=== PATIENT | female | born 1980 | race African-American/Black ===

== ENCOUNTER 2020-01-17 15:23 | Inpatient (IN) | payer SELFPAY ==
[~2020-01-17] VITALS: Ht 167.6 cm; Wt 57.9 kg
[2020-01-17] MEDS ORDERED: cefTRIAXone 1GM/50ML D5W 50 ML IV ONE (16:15)
[2020-01-17] MEDS ORDERED: SODIUM CHLORIDE 0.9% 1,000 ML IV ONE ×2 (16:15→17:00)
[2020-01-17 16:28] LABS: Basophils # (auto) 0.2 10 ^3/uL (0-0.2); Eosinophils # (auto) 0.6 10 ^3/uL (0-0.8); Neutrophils # (auto) 5.5 10 ^3/uL (1.6-8.6); Nucleated Red Blood Cells % 0.5 %
[2020-01-17 16:30] LABS: Basophils % (auto) 1.7 % (0.0-2.0); Eosinophils % (auto) 5.8 % (0.0-7.0); Lymphocytes # (auto) 2.4 10 ^3/uL (0.4-5.4); Lymphocytes % (auto) 23.9 % (10.0-50.0); Mean Corpuscular Hemoglobin 38.5 pg (28.0-32.0); Mean Corpuscular Hgb Conc. 35.4 g/dL (32.0-36.0); Mean Corpuscular Volume 108.6 fL (80.0-100.0); Monocytes # (auto) 1.3 10 ^3/uL (0-1.3); Monocytes % (auto) 13.2 % (0.0-12.0); Neutrophils % (auto) 55.4 % (37.0-80.0); Platelet Count (auto) 482 10^3/uL (140-450); Red Blood Cells 1.29 10^6/uL (4.0-5.20); Red Cell Distribution Width 17.9 % (11.8-14.3)
[2020-01-17 16:46] LABS: Albumin 4.2 g/dL (3.4-5.0); Potassium 4.1 mmol/L (3.5-5.1)
[2020-01-17 16:52] LABS: Bilirubin, Total 6.5 mg/dL (0.2-1.0); Calcium 8.7 mg/dL (8.5-10.1); Total Protein 8.7 g/dL (6.4-8.2)
[2020-01-17 17:35] LABS: INR 1.08 (0.9-1.15); Partial Thromboplastin Time 27.7 sec (23.0-31.2)
[2020-01-17] MEDS ORDERED: NEOMYCIN-BACITRACIN-POLYM UNITDOSE PKG TOP OINT TOP ONE ×2 (17:52→18:15)
[2020-01-17] MEDS ORDERED: LORazepam 0.5 MG TAB PO PRN (18:15)
[2020-01-17] MEDS ORDERED: NITROGLYCERIN 0.4 MG SL TAB SL PRN (18:15)
[2020-01-17] MEDS ORDERED: MORPHINE SULF INJ 2 MG/ML SYRINGE 1ML IV PRN ×2 (18:15)
[2020-01-17] MEDS ORDERED: ACETAMINOPHEN 500 MG TAB PO PRN (18:15)
[2020-01-17] MEDS: SODIUM CHLORIDE 0.9% 1,000 ML IV SCH (18:38)
[2020-01-17 20:59] VITALS: BP 135/65
[2020-01-17 21:03] LABS: Urine Bacteria FEW /hpf (None Seen); Urine Blood TRACE /uL (Negative); Urine Specific Gravity 1.008 (1.001-1.035); Urine WBC 1 /hpf (0 - 5)
[2020-01-17 21:31] VITALS: BP 136/84
[2020-01-17] MEDS: NEOMYCIN-BACITRACIN-POLYM 15GM TOP OINT TOP SCH (22:00)
[2020-01-18] VITALS (10 sets, daily range): BP systolic 121–149; BP diastolic 53–87
[2020-01-18] MEDS: SODIUM CHLORIDE 0.9% 1,000 ML IV SCH ×2 (04:34→14:43)
[2020-01-18 07:00] LABS: Eosinophils # (auto) 0.7 10 ^3/uL (0-0.8); Hematocrit 12.1 % (36.0-46.0); Nucleated Red Blood Cells % 0.6 %; White Blood Cell 9.8 10^3/uL (4.4-10.8)
[2020-01-18 07:05] LABS: Basophils # (auto) 0.1 10 ^3/uL (0-0.2); Basophils % (auto) 1.3 % (0.0-2.0); Eosinophils % (auto) 7.2 % (0.0-7.0); Lymphocytes # (auto) 2.7 10 ^3/uL (0.4-5.4); Lymphocytes % (auto) 27.3 % (10.0-50.0); Mean Corpuscular Hemoglobin 39.9 pg (28.0-32.0); Mean Corpuscular Hgb Conc. 36.5 g/dL (32.0-36.0); Mean Corpuscular Volume 109.4 fL (80.0-100.0); Monocytes # (auto) 1.3 10 ^3/uL (0-1.3); Monocytes % (auto) 13.1 % (0.0-12.0); Neutrophils % (auto) 51.1 % (37.0-80.0); Platelet Count (auto) 402 10^3/uL (140-450); Red Cell Distribution Width 17.1 % (11.8-14.3)
[2020-01-18 07:18] LABS: Hemoglobin 4.4 g/dL (12.2-16.2)
[2020-01-18 07:20] LABS: Albumin 3.2 g/dL (3.4-5.0); Calcium 7.9 mg/dL (8.5-10.1); Potassium 4.4 mmol/L (3.5-5.1)
[2020-01-18 07:23] LABS: Bilirubin, Total 4.2 mg/dL (0.2-1.0); Total Protein 7.4 g/dL (6.4-8.2)
[2020-01-18] MEDS: PANTOPRAZOLE 40 MG TAB PO SCH (10:00)
[2020-01-18] MEDS: FOLIC ACID 1 MG TAB PO SCH (10:00)
[2020-01-18] MEDS: NEOMYCIN-BACITRACIN-POLYM 15GM TOP OINT TOP SCH ×2 (10:00→22:00)
[2020-01-18] MEDS: DOCUSATE CALCIUM 240 MG CAP PO SCH (10:00)
[2020-01-18] MEDS ORDERED: cefTRIAXone 1GM/50ML D5W 50 ML IV ONE (12:30)
[2020-01-18] MEDS: CLINDAMYCIN 600MG IV 50 ML IV SCH ×2 (14:44→22:00)
[2020-01-19] VITALS (10 sets, daily range): BP systolic 125–139; BP diastolic 49–75
[2020-01-19] MEDS: SODIUM CHLORIDE 0.9% 1,000 ML IV SCH ×3 (00:15→23:30)
[2020-01-19] MEDS: CLINDAMYCIN 600MG IV 50 ML IV SCH ×3 (06:01→22:00)
[2020-01-19 06:09] LABS: Basophils # (auto) 0.1 10 ^3/uL (0-0.2); Eosinophils # (auto) 0.7 10 ^3/uL (0-0.8); Eosinophils % (auto) 6.9 % (0.0-7.0); Monocytes # (auto) 1.3 10 ^3/uL (0-1.3); Red Blood Cells 1.92 10^6/uL (4.0-5.20)
[2020-01-19 06:10] LABS: Basophils % (auto) 1.2 % (0.0-2.0); Hematocrit 19.3 % (36.0-46.0); Lymphocytes # (auto) 3.1 10 ^3/uL (0.4-5.4); Lymphocytes % (auto) 30.2 % (10.0-50.0); Mean Corpuscular Hemoglobin 35.3 pg (28.0-32.0); Mean Corpuscular Hgb Conc. 35.1 g/dL (32.0-36.0); Mean Corpuscular Volume 100.6 fL (80.0-100.0); Monocytes % (auto) 13.1 % (0.0-12.0); Neutrophils # (auto) 4.9 10 ^3/uL (1.6-8.6); Neutrophils % (auto) 48.6 % (37.0-80.0); Nucleated Red Blood Cells % 0.8 %; Platelet Count (auto) 397 10^3/uL (140-450); White Blood Cell 10.1 10^3/uL (4.4-10.8)
[2020-01-19 06:24] LABS: Hemoglobin 6.8 g/dL (12.2-16.2); Red Cell Distribution Width 23.3 % (11.8-14.3)
[2020-01-19 06:32] LABS: Albumin 3.5 g/dL (3.4-5.0); Calcium 7.7 mg/dL (8.5-10.1); Potassium 4.5 mmol/L (3.5-5.1)
[2020-01-19 06:37] LABS: BUN/Creatinine Ratio 14.1; Bilirubin, Total 5.4 mg/dL (0.2-1.0); Total Protein 7.7 g/dL (6.4-8.2)
[2020-01-19] MEDS: cefTRIAXone 1GM/50ML D5W 50 ML IV SCH (09:50)
[2020-01-19] MEDS: PANTOPRAZOLE 40 MG TAB PO SCH (09:50)
[2020-01-19] MEDS: FOLIC ACID 1 MG TAB PO SCH (09:50)
[2020-01-19] MEDS: DOCUSATE CALCIUM 240 MG CAP PO SCH (10:00)
[2020-01-19] MEDS: NEOMYCIN-BACITRACIN-POLYM 15GM TOP OINT TOP SCH ×2 (14:55→23:29)
[2020-01-20] VITALS (7 sets, daily range): BP systolic 105–141; BP diastolic 47–71
[2020-01-20] MEDS: CLINDAMYCIN 600MG IV 50 ML IV SCH ×2 (05:28→12:53)
[2020-01-20] MEDS: SODIUM CHLORIDE 0.9% 1,000 ML IV SCH (06:57)
[2020-01-20 07:53] LABS: Hematocrit 22.4 % (36.0-46.0); Mean Corpuscular Hgb Conc. 35.7 g/dL (32.0-36.0)
[2020-01-20 07:56] LABS: Basophils # (auto) 0.2 10 ^3/uL (0-0.2); Basophils % (auto) 1.5 % (0.0-2.0); Eosinophils # (auto) 0.8 10 ^3/uL (0-0.8); Lymphocytes # (auto) 2.5 10 ^3/uL (0.4-5.4); Lymphocytes % (auto) 24.3 % (10.0-50.0); Mean Corpuscular Hemoglobin 35.5 pg (28.0-32.0); Mean Corpuscular Volume 99.4 fL (80.0-100.0); Monocytes # (auto) 1.3 10 ^3/uL (0-1.3); Monocytes % (auto) 13.1 % (0.0-12.0); Neutrophils # (auto) 5.4 10 ^3/uL (1.6-8.6); Neutrophils % (auto) 53.1 % (37.0-80.0); Nucleated Red Blood Cells % 0.7 %; Platelet Count (auto) 376 10^3/uL (140-450); Red Blood Cells 2.25 10^6/uL (4.0-5.20); Red Cell Distribution Width 19.9 % (11.8-14.3); White Blood Cell 10.2 10^3/uL (4.4-10.8)
[2020-01-20] MEDS: DOCUSATE CALCIUM 240 MG CAP PO SCH (10:00)
[2020-01-20] MEDS ORDERED: SILVER SULFADIAZINE 1 % TOPICAL CREAM 50GM TOP SCH (10:00)
[2020-01-20] MEDS: NEOMYCIN-BACITRACIN-POLYM 15GM TOP OINT TOP SCH (10:00)
[2020-01-20] MEDS: cefTRIAXone 1GM/50ML D5W 50 ML IV SCH (12:51)
[2020-01-20] MEDS: PANTOPRAZOLE 40 MG TAB PO SCH (12:51)
[2020-01-20] MEDS: FOLIC ACID 1 MG TAB PO SCH (12:51)
== END 2020-01-20 13:47 | disposition home or self-care (01) | DRG 594 ==
LOC: ER 15:23 → OVERFLOW 15:24 → CENTRAL 19:46
PROVIDERS: ATTEND Family Medicine
PROC: 30233N1 Transfusion of Nonautologous Red Blood Cells into Peripheral Vein, Percutaneous Approach (ICD-10-PCS; principal; 2020-01-18)
DX: L97.319 Non-pressure chronic ulcer of right ankle with unspecified severity (principal); F17.210 Nicotine dependence, cigarettes, uncomplicated; D57.1 Sickle-cell disease without crisis; B95.61 Methicillin susceptible Staphylococcus aureus infection as the cause of diseases classified elsewhere
CPT/HCPCS: 36415; 71045; 73610; 73721; 80053; 81001; 84702; 85025; 85045; 85610; 85730; 86850; 86900; 86901; 86920; 87077; 87186; 87205; 93926; 96360; G0378; J0696; J3490